=== PATIENT | female | born 1950 ===

== ENCOUNTER 2017-04-28 04:31 | Inpatient (IN) | payer BC, MEDICARE ==
[2017-04-28 04:31] VITALS: BMI 42.7
--- NOTE | 2017-04-28 05:20 | C.PDOC ---
Time Seen by Provider: 04/28/17 05:00 Chief Complaint (Nursing): Shortness Of Breath Past Medical History Vital Signs: Last Vital Signs Temp 98 F 04/28/17 04:54 Pulse 71 04/28/17 04:54 Resp 20 04/28/17 04:54 BP 125/80 04/28/17 04:54 Pulse Ox 96 04/28/17 04:54 - Medical History PMH: Asthma, Diverticulitis, Hypercholesterolemia Surgical History: Appendectomy - [facility] Procedures OTHER OPEN INCISIONAL HERNIA REPAIR WITH GRAFT OR PROSTHESIS (03/09/13) VACCINATION NEC (03/09/13) - Social History Hx Alcohol Use: No Hx Substance Use: No - Immunization History Hx Tetanus Toxoid Vaccination: No Hx Influenza Vaccination: No Hx Pneumococcal Vaccination: No ED Course And Treatment O2 Sat by Pulse Oximetry: 96 Disposition - Disposition
[2017-04-28] MEDS: Albuterol-Ipratrop 3 mg / 0.5 (3 ml) UD IH SCH ×2 (05:30→05:43)
[2017-04-28] MEDS ORDERED: Albuterol-Ipratrop 3 mg / 0.5 (3 ml) UD ONE ×2 (05:40→05:41)
--- NOTE | 2017-04-28 06:26 | C.PDOC ---
History Of Present Illness Patient is a 66 y/o female, with a Hx of asthma, who presents to the Ed with a complaint of cough, SOB, and increased wheezing since last night. Patient was prescribed several meds including Biaxin and singulair, flonase, phenergan and admits to using nebulizer at home with no relief. Notes being unable to sleep due to symptoms. Denies fever or CP. No other physical complaints at this time. Time Seen by Provider: 04/28/17 05:00 Chief Complaint (Nursing): Shortness Of Breath History Per: Patient History/Exam Limitations: no limitations Onset/Duration Of Symptoms: Days (a few days) Current Respiratory Medications: Other (biaxin and flonase) Associated Symptoms: denies: Fever, Chest Pain Recent travel outside of the [place]: No Past Medical History Reviewed: Historical Data, Nursing Documentation, Vital Signs Vital Signs: Last Vital Signs Temp 98 F 04/28/17 04:54 Pulse 71 04/28/17 04:54 Resp 20 04/28/17 05:32 BP 125/80 04/28/17 04:54 Pulse Ox 95 04/28/17 06:50 - Medical History PMH: Asthma, Diverticulitis, Hypercholesterolemia Surgical History: Appendectomy - [facility] Procedures OTHER OPEN INCISIONAL HERNIA REPAIR WITH GRAFT OR PROSTHESIS (03/09/13) VACCINATION NEC (03/09/13) Family History: States: No Known Family Hx - Social History Hx Alcohol Use: No Hx Substance Use: No - Immunization History Hx Tetanus Toxoid Vaccination: No Hx Influenza Vaccination: No Hx Pneumococcal Vaccination: No Review Of Systems Constitutional: Negative for: Fever Cardiovascular: Negative for: Chest Pain Respiratory: Positive for: Cough, Shortness of Breath, Wheezing Physical Exam - Physical Exam Appears: Well, Non-toxic, No Acute Distress Eye(s): bilateral: Normal Inspection Oral Mucosa: Moist Throat: Normal Cardiovascular: Rhythm Regular Respiratory: Decreased Breath Sounds, No Rales, No Rhonchi, Wheezing (expiratory , diffuse) Neurological/Psych: Oriented x3 ED Course And Treatment O2 Sat by Pulse Oximetry: 95 Pulse Ox Interpretation: Normal (low normal) - Radiology CXR: Interpreted by [place] CXR Interpretation: Yes: No Acute Disease. No: Infiltrates Progress Note: CXR and nebulizer treatment ordered. Duoneb x2 and prednisone PO administered. Pt still wheezing diffusely, in mild respiratory distress, VSS. Pt requesting medications for her cough. 3rd duoneb ordered, labs oedered incl Pro BNP. WILL REASSESS Reassessment Condition: Unchanged Disposition Counseled Patient/Family Regarding: Diagnosis, Need For Followup - Disposition Disposition Time: 06:45 Condition: STABLE Forms: [facility] ([place]) - Clinical Impression Clinical Impression: Dyspnea, COPD exacerbation - Scribe Statement The provider has reviewed the documentation as recorded by the Scribe Cathy Mclaughlin All medical record entries made by the Scribe were at my direction and personally dictated by me. I have reviewed the chart and agree that the record accurately reflects my personal performance of the history, physical exam, medical decision making, and the department course for this patient. I have also personally directed, reviewed, and agree with the discharge instructions and disposition. Physician Patient Turnover Patient Signed Over To: Esther Vargas Handoff Comments: Pending labs and reeval for disposition
[2017-04-28] MEDS ORDERED: Promethazine/Cod 6.25mg-10mg/5ml Syr UD PO STA (06:35)
[2017-04-28] MEDS ORDERED: Albuterol-Ipratrop 3 mg / 0.5 (3 ml) UD INH STA (06:46)
[2017-04-28] MEDS ORDERED: Promethazine/Cod 6.25mg-10mg/5ml Syr UD ONE (07:00)
[2017-04-28 07:27] LABS: CALCIUM 9.1 mg/dl (8.6-10.4); GFR AFRICAN-AMERICAN > 60; GFR NON-AFRICAN AMERICAN > 60
[2017-04-28 07:35] LABS: ALB/GLOB RATIO 1.1 (1.0-2.1); ALBUMIN 4.2 g/dL (3.5-5.0); ALT/SGPT 74 U/L (9-52); AST/SGOT 120 U/L (14-36); B-TYPE NATRIURETIC PEPTIDE 28.2 pg/mL (0-900); BLOOD UREA NITROGEN 20 mg/dL (7-17)
[2017-04-28 07:54] LABS: BASO # 0.1 K/uL (0.0-0.2); EOS # 0.3 K/uL (0.0-0.7); EOS % 3.2 % (0.0-4.0); LYMPH # 1.8 K/uL (1.0-4.3); LYMPH % 22.5 % (20.0-40.0); MEAN CELL VOLUME 90.5 fL (81.0-99.0); MEAN CORPUSCULAR HEMOGLOBIN 30.9 pg (27.0-31.0); MEAN CORPUSCULAR HGB CONC 34.2 g/dL (33.0-37.0); MEAN PLATELET VOLUME 8.4 fL (7.2-11.7); MONO # 0.6 K/uL (0.0-0.8); MONO % 7.4 % (0.0-10.0); NEUT # 5.3 K/uL (1.8-7.0); NEUT % 65.9 % (50.0-75.0); RBC 4.21 Mil/uL (3.80-5.20); RED CELL DISTRIBUTION WIDTH 12.4 % (11.5-14.5); WHITE BLOOD COUNT 8.1 K/uL (4.8-10.8)
[2017-04-28 08:28] LABS: ALB/GLOB RATIO 1.1 (1.0-2.1); ALBUMIN 4.1 g/dL (3.5-5.0); ALT/SGPT 78 U/L (9-52); AST/SGOT 99 U/L (14-36); BLOOD UREA NITROGEN 19 mg/dL (7-17); GFR AFRICAN-AMERICAN > 60; GFR NON-AFRICAN AMERICAN > 60
[2017-04-28 08:55] VITALS: RESP 20
--- NOTE | 2017-04-28 10:16 | RAD ---
Chest x-ray two views History: Cough congestion. Comparison: 03/11/2013 Findings: No focal infiltrate or effusion. Nonspecific diffuse increased interstitial lung markings. Clinical correlation. Small nodular density at left lung base likely represents vessel on end. Heart size within normal limits. Degenerative changes in the spine. Impression : No focal infiltrate or effusion. Nonspecific diffuse increased interstitial lung markings. Clinical correlation. Small nodular density at left lung base likely represents vessel on end.
--- NOTE | 2017-04-28 10:45 | CP.PCM.HP ---
Past Patient History - Past Social History Smoking Status: Never Smoked - CARDIAC Hx Hypercholesterolemia: Yes - PULMONARY Hx Asthma: Yes - GASTROINTESTINAL Hx Diverticulitis: Yes - PSYCHIATRIC Hx Substance Use: No - SURGICAL HISTORY Hx Appendectomy: Yes - ANESTHESIA Hx Anesthesia: Yes Hx Anesthesia Reactions: No Meds Allergies/Adverse Reactions: Allergies Allergy/AdvReac Type Severity Reaction Status Date / Time PCN Allergy Uncoded 04/28/17 04:59 SEAFOOD Allergy Uncoded 04/28/17 04:59 Physical Exam - Constitutional Appears: Well - Head Exam Head Exam: ATRAUMATIC, NORMAL INSPECTION, NORMOCEPHALIC - Eye Exam Eye Exam: EOMI, Normal appearance, PERRL Pupil Exam: NORMAL ACCOMODATION, PERRL - ENT Exam ENT Exam: Mucous Membranes Moist, Normal Exam - Neck Exam Neck exam: Positive for: Normal Inspection - Respiratory Exam Respiratory Exam: Decreased Breath Sounds - Cardiovascular Exam Cardiovascular Exam: REGULAR RHYTHM, +S1, +S2 - GI/Abdominal Exam GI & Abdominal Exam: Diminished Bowel Sounds, Soft - Rectal Exam Rectal Exam: Deferred Results - Vital Signs Recent Vital Signs: Last Vital Signs Temp 98.2 F 04/28/17 08:55 Pulse 114 H 04/28/17 08:55 Resp 20 04/28/17 08:55 BP 120/62 04/28/17 09:35 Pulse Ox 95 04/28/17 08:55 - Labs Result Diagrams: 04/28/17 07:48 04/28/17 07:48 Labs: Laboratory Results - last 24 hr 04/28/17 04/28/17 04/28/17 07:08 07:48 07:48 WBC 8.1 RBC 4.21 Hgb 13.0 Hct 38.0 MCV 90.5 MCH 30.9 MCHC 34.2 RDW 12.4 Plt Count 254 D MPV 8.4 Neut % (Auto) 65.9 Lymph % (Auto) 22.5 [place] % (Auto) 7.4 Eos % (Auto) 3.2 Baso % (Auto) 1.0 Neut # 5.3 Lymph # 1.8 [place] # 0.6 Eos # 0.3 Baso # 0.1 Sodium 132 133 Potassium 5.6 H 4.2 Chloride 99 98 Carbon Dioxide 26 26 Anion Gap 13 14 BUN 20 H 19 H Creatinine 0.6 L 0.6 L Est GFR ( Amer) > 60 > 60 Est GFR (Non-Af Amer) > 60 > 60 Random Glucose 199 H 248 H Calcium 9.1 9.0 Total Bilirubin 1.0 0.5 AST 120 H 99 H ALT 74 H 78 H Alkaline Phosphatase 92 108 Troponin I < 0.0120 NT-Pro-B Natriuret Pep 28.2 Total Protein 8.3 7.8 Albumin 4.2 4.1 Globulin 4.0 H 3.7 Albumin/Globulin Ratio 1.1 1.1
[2017-04-28 11:28] LABS: INR 1.1; PROTHROMBIN TIME 13.1 SECONDS (9.7-12.2)
[2017-04-28] MEDS: Albuterol-Ipratrop 3 mg / 0.5 (3 ml) UD INH SCH ×2 (13:23→19:24)
[2017-04-28] MEDS: MethylPREDNISolone 40 mg Vial IVP SCH ×2 (13:46→21:55)
--- NOTE | 2017-04-28 17:02 | CP.PCM.CON ---
History of Present Illness - History of Present Illness History of Present Illness: The patient is a 66 year old female with past medical history of asthma, DM, and unspecified arrhythmia treated with diltiazem who was treated in the ER for an asthma exacerbation. She states that 1 week ago she developed symptoms of an upper respiratory infection: sore throat, weakness, headache, back pain, and dry cough. On Thursday, the cough became severe and persistent leading to costochondritis. She began producing sputum that she described as changing in color from yellow to white to green to brown. On Thursday, she states that she visited her PCP who prescribed antibiotics and cough syrup for her in addition to recommending an increase in the frequency with which she takes her home inhaler. That night the patient developed severe wheezing, was producing copious sputum, and was complaining of orthopnea. She came to the emergency department due to her respiratory distress and difficulty sleeping. She states that she has not been traveling recently but does admit to many sick contacts with the "flu". Review of systems: General: denies fever, chills, admits to weakness Cardiovascular: denies chest pain, peripheral edema, admits to palpitations Pulmonary: denies shortness of breath, dyspnea, sputum production, hemoptysis, and wheezing, admits to cough Social history: Smoking - The patient began smoking at the age of 18 and stopped at the age of 50. She smoked 1 pack every 3 days on average. Occupation - The patient is currently retired. She used to work as a department secretary. Medical history: * Diabetes mellitus * Hyperlipidemia * Hypertriglyceridemia * Osteoarthritis * Nephrolithiasis * Migraines * Asthma * Unspecified arrhythmia (patient is unsure) Allergies: penicillin, calamari Family history: mother had diabetes but no family history of lung disease Medications: * Advair diskus 250/50 2 inh po daily * Proair hfa 2 2 inh q6 prn * Lipitor 10 mg po daily * Janumet 50-500 mg tablet 500 mg po daily * Montelukast sodium 500 mg po daily * Biaxin filmtab 500 mg po bid * Fenofibrate 145 mg po daily * Diltiazem ER 120 mg po daily Vital signs: Temperature: 98.2 F Pulse: 114 bpm Respiratory rate: 20 Blood pressure: 120/62 mm Hg Pulse oximetry: 95% on 2L O2 nasal canula Physical examination: Cardiovascular: tachycardic, +s1, +s2, grade 3 aortic stenosis murmur Pulmonary: mild diffuse wheezing, decreased lung sounds at bases, normal breathing pattern Labs: Imaging: CXR: nonspecific diffuse increased interstitial lung markings Assessment & Plan: Asthma exacerbation * CXR: nonspecific diffuse increased interstitial lung markings * Continue therapy with oxygen, Duonebs, Solumedrol, Prednisone * Monitor oxygen saturation * F/u peak flows Past Patient History - Past Medical History & Family History Past Medical History?: Yes - Past Social History Smoking Status: Never Smoked - CARDIAC Hx Hypercholesterolemia: Yes - PULMONARY Hx Asthma: Yes - MUSCULOSKELETAL/RHEUMATOLOGICAL Hx Falls: Yes (trips when walking) - GASTROINTESTINAL Hx Diverticulitis: Yes - PSYCHIATRIC Hx Substance Use: No - SURGICAL HISTORY Hx Appendectomy: Yes Other/Comment: left ovary and left fallopian tube removed years ago secondary to diverticilitis. right inguinal hernia repair with mesh years ago. - ANESTHESIA Hx Anesthesia: Yes Hx Anesthesia Reactions: No Meds Allergies/Adverse Reactions: Allergies Allergy/AdvReac Type Severity Reaction Status Date / Time PCN Allergy Uncoded 04/28/17 04:59 SEAFOOD Allergy Uncoded 04/28/17 04:59 - Medications Medications: Current Medications Acetaminophen (Tylenol 325mg Tab) 650 mg PO Q6 PRN PRN Reason: Pain, moderate (4-7) Albuterol/Ipratropium (Duoneb 3 Mg/0.5 Mg (3 Ml) Ud) 3 ml INH RQ6 [facility] Last Admin: 04/28/17 13:23 Dose: 3 ml Diltiazem HCl (Cardizem Cd) 120 mg PO DAILY [facility] Fenofibrate (Tricor) 145 mg PO DAILY [facility] Guaifenesin (Robitussin) 200 mg PO Q4H PRN PRN Reason: Cough and congestion Heparin Sodium (Porcine) (Heparin) 5,000 units SC Q12 [facility] Azithromycin 500 mg/ Sodium (Chloride) 250 mls @ 250 mls/hr IVPB Q24H [facility] Ceftriaxone Sodium 1 gm/ (Sodium Chloride) 100 mls @ 100 mls/hr IVPB QPM [facility] Insulin Aspart (Novolog) 0 unit SC ACHS [facility] PRN Reason: Protocol Metformin HCl (Glucophage) 500 mg PO DAILY [facility] Methylprednisolone (Solu-Medrol) 40 mg IVP Q8 [facility] Last Admin: 04/28/17 13:46 Dose: 40 mg Montelukast Sodium (Singulair) 10 mg PO HS [facility] Pantoprazole Sodium (Protonix Ec Tab) 40 mg PO DAILY [facility] Rosuvastatin Calcium (Crestor) 5 mg PO HS [facility] Fluticasone/Salmeterol (Advair Diskus 250/50) 1 puff INH RQ12 [facility] Sitagliptin Phosphate (Januvia) 50 mg PO DAILY [facility] Sitagliptin Phosphate (Januvia) 50 mg PO DAILY [facility] Results - Vital Signs Recent Vital Signs: Last Vital Signs Temp 97.8 F 04/28/17 16:00 Pulse 64 04/28/17 16:00 Resp 20 04/28/17 16:00 BP 100/59 L 04/28/17 16:00 Pulse Ox 96 04/28/17 16:00 - Labs Result Diagrams: 04/28/17 07:48 04/28/17 07:48 Labs: Laboratory Results - last 24 hr 04/28/17 04/28/17 04/28/17 07:08 07:48 07:48 WBC 8.1 RBC 4.21 Hgb 13.0 Hct 38.0 MCV 90.5 MCH 30.9 MCHC 34.2 RDW 12.4 Plt Count 254 D MPV 8.4 Neut % (Auto) 65.9 Lymph % (Auto) 22.5 [place] % (Auto) 7.4 Eos % (Auto) 3.2 Baso % (Auto) 1.0 Neut # 5.3 Lymph # 1.8 [place] # 0.6 Eos # 0.3 Baso # 0.1 PT INR APTT Sodium 132 133 Potassium 5.6 H 4.2 Chloride 99 98 Carbon Dioxide 26 26 Anion Gap 13 14 BUN 20 H 19 H Creatinine 0.6 L 0.6 L Est GFR ( Amer) > 60 > 60 Est GFR (Non-Af Amer) > 60 > 60 POC Glucose (mg/dL) Random Glucose 199 H 248 H Calcium 9.1 9.0 Total Bilirubin 1.0 0.5 AST 120 H 99 H ALT 74 H 78 H Alkaline Phosphatase 92 108 Troponin I < 0.0120 NT-Pro-B Natriuret Pep 28.2 Total Protein 8.3 7.8 Albumin 4.2 4.1 Globulin 4.0 H 3.7 Albumin/Globulin Ratio 1.1 1.1 04/28/17 04/28/17 11:11 16:38 WBC RBC Hgb Hct MCV MCH MCHC RDW Plt Count MPV Neut % (Auto) Lymph % (Auto) [place] % (Auto) Eos % (Auto) Baso % (Auto) Neut # Lymph # [place] # Eos # Baso # PT 13.1 H INR 1.1 APTT 28 Sodium Potassium Chloride Carbon Dioxide Anion Gap BUN Creatinine Est GFR ( Amer) Est GFR (Non-Af Amer) POC Glucose (mg/dL) > 500 H* Random Glucose Calcium Total Bilirubin AST ALT Alkaline Phosphatase Troponin I NT-Pro-B Natriuret Pep Total Protein Albumin Globulin Albumin/Globulin Ratio
[2017-04-28] MEDS: guaiFENesin 200 mg/10 ml Syrup UD PO PRN (17:11)
[2017-04-28] MEDS: (Novolog) Insulin Aspart, Recombinant 100 u/ml 10 ml vial SC SCH ×2 (17:13→21:50)
[2017-04-28] MEDS: Azithromycin 500 MG in Sodium Chloride 0.9% 250 ML IVPB SCH ×2 (17:18→18:00)
[2017-04-28] MEDS: Pantoprazole 40 mg EC Tab PO SCH (19:25)
[2017-04-28] MEDS ORDERED: Fluticasone-Salmeterol 250-50mcg Diskus INH SCH (20:00)
[2017-04-28] MEDS ORDERED: (Novolog) Insulin Aspart, Recombinant 100 u/ml 10 ml vial SC ONE ×3 (22:50→23:30)
[2017-04-29] MEDS: Albuterol-Ipratrop 3 mg / 0.5 (3 ml) UD INH SCH ×4 (01:39→19:29)
[2017-04-29] MEDS ORDERED: (Novolin R) Insulin Human Regular 100 units/ml vial SC ONE (03:07)
[2017-04-29] MEDS: guaiFENesin 200 mg/10 ml Syrup UD PO PRN (04:16)
[2017-04-29] MEDS: MethylPREDNISolone 40 mg Vial IVP SCH ×2 (06:22→13:16)
--- NOTE | 2017-04-29 08:05 | CP.PCM.PN ---
Subjective - Date & Time of Evaluation Date of Evaluation: 04/29/17 Time of Evaluation: 05:50 - Subjective Subjective: clinically same Objective - Vital Signs/Intake and Output Vital Signs (last 24 hours): Temp Pulse Resp BP Pulse Ox 97.9 F 101 H 20 135/76 96 04/29/17 00:00 04/29/17 00:00 04/29/17 00:00 04/29/17 00:00 04/29/17 00:00 Intake and Output: 04/29/17 04/29/17 06:59 18:59 Intake Total 1000 Output Total 3 Balance 997 - Medications Medications: Current Medications Acetaminophen (Tylenol 325mg Tab) 650 mg PO Q6 PRN PRN Reason: Pain, moderate (4-7) Last Admin: 04/28/17 17:15 Dose: 650 mg Albuterol/Ipratropium (Duoneb 3 Mg/0.5 Mg (3 Ml) Ud) 3 ml INH RQ6 [facility] Last Admin: 04/29/17 07:31 Dose: 3 ml Diltiazem HCl (Cardizem Cd) 120 mg PO DAILY [facility] Fenofibrate (Tricor) 145 mg PO DAILY [facility] Guaifenesin (Robitussin) 200 mg PO Q4H PRN PRN Reason: Cough and congestion Last Admin: 04/29/17 04:16 Dose: 200 mg Heparin Sodium (Porcine) (Heparin) 5,000 units SC Q12 [facility] Last Admin: 04/28/17 21:53 Dose: 5,000 units Azithromycin 500 mg/ Sodium (Chloride) 250 mls @ 250 mls/hr IVPB Q24H [facility] Last Admin: 04/28/17 18:00 Dose: 250 mls/hr Ceftriaxone Sodium 1 gm/ (Sodium Chloride) 100 mls @ 100 mls/hr IVPB QPM [facility] Last Admin: 04/28/17 18:59 Dose: 100 mls/hr Insulin Aspart (Novolog) 0 unit SC ACHS [facility] PRN Reason: Protocol Metformin HCl (Glucophage) 500 mg PO DAILY [facility] Methylprednisolone (Solu-Medrol) 40 mg IVP Q8 [facility] Last Admin: 04/29/17 06:22 Dose: 40 mg Montelukast Sodium (Singulair) 10 mg PO HS [facility] Last Admin: 04/28/17 21:55 Dose: 10 mg Pantoprazole Sodium (Protonix Ec Tab) 40 mg PO DAILY [facility] Last Admin: 04/28/17 19:25 Dose: 40 mg Rosuvastatin Calcium (Crestor) 5 mg PO HS [facility] Last Admin: 04/28/17 22:00 Dose: 5 mg Fluticasone/Salmeterol (Advair Diskus 250/50) 1 puff INH RQ12 [facility] Sitagliptin Phosphate (Januvia) 50 mg PO DAILY [facility] Sitagliptin Phosphate (Januvia) 50 mg PO DAILY [facility] Last Admin: 04/28/17 17:12 Dose: 50 mg - Labs Labs: 04/28/17 07:48 04/28/17 07:48 PT 13.1 SECONDS (9.7-12.2) H 04/28/17 11:11 INR 1.1 04/28/17 11:11 APTT 28 SECONDS (21-34) 04/28/17 11:11
[2017-04-29] MEDS: (Novolog) Insulin Aspart, Recombinant 100 u/ml 10 ml vial SC SCH ×4 (08:23→21:40)
[2017-04-29] MEDS: Pantoprazole 40 mg EC Tab PO SCH (10:08)
[2017-04-29] MEDS: diltiaZEM 120 mg/24 Hours CD Cap PO SCH (10:09)
--- NOTE | 2017-04-29 15:26 | CP.PCM.PN ---
Subjective - Date & Time of Evaluation Date of Evaluation: 04/29/17 Time of Evaluation: 10:30 - Subjective Subjective: The patient was seen and examined this morning. She states that she slept for 5 hours without coughing. Today she is complaining of mild shortness of breath. She states that her sore/hoarse throat is improving. She is complaining of nasal congestion. Her chest pain has resolved. Her cough has improved. She admits to weakness, palpitations, cough, and mild wheezing. She denies fever, chills, chest pain, sputum production, and hempotysis. Vital signs: Temperature: 98.1 F Pulse: 104 bpm Respiratory rate: 20 brpm Blood pressure: 137/77 mm Hg Pulse oximetry: 95% on RA Physical examination: Cardiovascular: tachycardic, +s1, +s2, grade 3 aortic stenosis murmur Pulmonary: mild diffuse wheezing in WENDY & LLL, decreased lung sounds at bases, normal breathing pattern Labs: 04/28/2017 Imaging: CXR: nonspecific diffuse increased interstitial lung markings Assessment & Plan: Asthma exacerbation * CXR: nonspecific diffuse increased interstitial lung markings * Continue therapy with Duonebs, singulair, start prednisone * Continue IV azithromycin and ceftriaxone * Monitor oxygen saturation Objective - Vital Signs/Intake and Output Vital Signs (last 24 hours): Temp Pulse Resp BP Pulse Ox 98.1 F 104 H 20 137/77 95 04/29/17 08:00 04/29/17 08:00 04/29/17 08:00 04/29/17 08:00 04/29/17 08:00 Intake and Output: 04/29/17 04/29/17 06:59 18:59 Intake Total 1000 480 Output Total 3 Balance 997 480 - Medications Medications: Current Medications Acetaminophen (Tylenol 325mg Tab) 650 mg PO Q6 PRN PRN Reason: Pain, moderate (4-7) Last Admin: 04/28/17 17:15 Dose: 650 mg Albuterol/Ipratropium (Duoneb 3 Mg/0.5 Mg (3 Ml) Ud) 3 ml INH RQ6 [facility] Last Admin: 04/29/17 13:32 Dose: 3 ml Diltiazem HCl (Cardizem Cd) 120 mg PO DAILY [facility] Last Admin: 04/29/17 10:09 Dose: 120 mg Fenofibrate (Tricor) 145 mg PO DAILY [facility] Last Admin: 04/29/17 10:09 Dose: 145 mg Guaifenesin (Robitussin) 200 mg PO Q4H PRN PRN Reason: Cough and congestion Last Admin: 04/29/17 04:16 Dose: 200 mg Heparin Sodium (Porcine) (Heparin) 5,000 units SC Q12 [facility] Last Admin: 04/29/17 10:09 Dose: 5,000 units Azithromycin 500 mg/ Sodium (Chloride) 250 mls @ 250 mls/hr IVPB Q24H [facility] Last Admin: 04/28/17 18:00 Dose: 250 mls/hr Ceftriaxone Sodium 1 gm/ (Sodium Chloride) 100 mls @ 100 mls/hr IVPB QPM [facility] Last Admin: 04/28/17 18:59 Dose: 100 mls/hr Insulin Aspart (Novolog) 0 unit SC ACHS [facility] PRN Reason: Protocol Last Admin: 04/29/17 12:30 Dose: 10 unit Metformin HCl (Glucophage) 500 mg PO DAILY [facility] Last Admin: 04/29/17 10:08 Dose: 500 mg Methylprednisolone (Solu-Medrol) 40 mg IVP Q8 [facility] Last Admin: 04/29/17 13:16 Dose: 40 mg Montelukast Sodium (Singulair) 10 mg PO HS [facility] Last Admin: 04/28/17 21:55 Dose: 10 mg Pantoprazole Sodium (Protonix Ec Tab) 40 mg PO DAILY [facility] Last Admin: 04/29/17 10:08 Dose: 40 mg Pneumococcal Polyvalent Vaccine (Pneumovax 23 Vaccine) 0.5 ml IM .ONCE ONE Stop: 05/01/17 10:01 Rosuvastatin Calcium (Crestor) 5 mg PO HS [facility] Last Admin: 04/28/17 22:00 Dose: 5 mg Fluticasone/Salmeterol (Advair Diskus 250/50) 1 puff INH RQ12 [facility] Sitagliptin Phosphate (Januvia) 50 mg PO DAILY [facility] Last Admin: 04/29/17 10:08 Dose: 50 mg - Labs Labs: 04/28/17 07:48 04/28/17 07:48 PT 13.1 SECONDS (9.7-12.2) H 04/28/17 11:11 INR 1.1 04/28/17 11:11 APTT 28 SECONDS (21-34) 04/28/17 11:11
[2017-04-29] MEDS: Azithromycin 500 MG in Sodium Chloride 0.9% 250 ML IVPB SCH (16:50)
[2017-04-30] MEDS: Albuterol-Ipratrop 3 mg / 0.5 (3 ml) UD INH SCH ×4 (01:33→19:33)
[2017-04-30] MEDS: (Novolog) Insulin Aspart, Recombinant 100 u/ml 10 ml vial SC SCH ×5 (08:11→21:31)
[2017-04-30] MEDS: Pantoprazole 40 mg EC Tab PO SCH (10:09)
[2017-04-30] MEDS: diltiaZEM 120 mg/24 Hours CD Cap PO SCH (10:10)
[2017-04-30 14:13] LABS: BASO % 0.4 % (0.0-2.0); EOS % 0.1 % (0.0-4.0); HEMOGLOBIN 12.8 g/dL (11.0-16.0); LYMPH # 1.5 K/uL (1.0-4.3); LYMPH % 12.1 % (20.0-40.0); MEAN CELL VOLUME 90.7 fL (81.0-99.0); MEAN CORPUSCULAR HEMOGLOBIN 30.1 pg (27.0-31.0); MEAN CORPUSCULAR HGB CONC 33.2 g/dL (33.0-37.0); MONO # 0.7 K/uL (0.0-0.8); MONO % 5.9 % (0.0-10.0); NEUT # 10.1 K/uL (1.8-7.0); NEUT % 81.5 % (50.0-75.0); RBC 4.24 Mil/uL (3.80-5.20); RED CELL DISTRIBUTION WIDTH 12.4 % (11.5-14.5); WHITE BLOOD COUNT 12.4 K/uL (4.8-10.8)
[2017-04-30 14:36] LABS: ALB/GLOB RATIO 1.1 (1.0-2.1); ALBUMIN 4.1 g/dL (3.5-5.0); ALT/SGPT 50 U/L (9-52); AST/SGOT 40 U/L (14-36); BLOOD UREA NITROGEN 24 mg/dL (7-17); CALCIUM 9.3 mg/dl (8.6-10.4); GFR AFRICAN-AMERICAN > 60; GFR NON-AFRICAN AMERICAN > 60
[2017-04-30] MEDS: Azithromycin 500 MG in Sodium Chloride 0.9% 250 ML IVPB SCH (16:31)
[2017-04-30] MEDS: guaiFENesin 200 mg/10 ml Syrup UD PO PRN (16:36)
--- NOTE | 2017-04-30 18:36 | CP.PCM.PN ---
Subjective - Date & Time of Evaluation Date of Evaluation: 04/30/17 Time of Evaluation: 18:00 - Subjective Subjective: Patient seen and examined Still complaining of cough Shortness of breath much improved Afebrile No chest pain Objective - Vital Signs/Intake and Output Vital Signs (last 24 hours): Temp Pulse Resp BP Pulse Ox 97.8 F 82 20 138/86 96 04/30/17 16:00 04/30/17 16:00 04/30/17 16:00 04/30/17 16:00 04/30/17 16:00 Intake and Output: 04/30/17 04/30/17 06:59 18:59 Intake Total 950 600 Balance 950 600 - Medications Medications: Current Medications Acetaminophen (Tylenol 325mg Tab) 650 mg PO Q6 PRN PRN Reason: Pain, moderate (4-7) Last Admin: 04/28/17 17:15 Dose: 650 mg Albuterol/Ipratropium (Duoneb 3 Mg/0.5 Mg (3 Ml) Ud) 3 ml INH RQ6 [facility] Last Admin: 04/30/17 13:32 Dose: 3 ml Diltiazem HCl (Cardizem Cd) 120 mg PO DAILY [facility] Last Admin: 04/30/17 10:10 Dose: 120 mg Fenofibrate (Tricor) 145 mg PO DAILY [facility] Last Admin: 04/30/17 10:10 Dose: 145 mg Guaifenesin (Robitussin) 200 mg PO Q4H PRN PRN Reason: Cough and congestion Last Admin: 04/30/17 16:36 Dose: 200 mg Heparin Sodium (Porcine) (Heparin) 5,000 units SC Q12 [facility] Last Admin: 04/30/17 10:10 Dose: 5,000 units Azithromycin 500 mg/ Sodium (Chloride) 250 mls @ 250 mls/hr IVPB Q24H [facility] Last Admin: 04/30/17 16:31 Dose: 250 mls/hr Ceftriaxone Sodium 1 gm/ (Sodium Chloride) 100 mls @ 100 mls/hr IVPB QPM [facility] Last Admin: 04/30/17 17:35 Dose: 100 mls/hr Insulin Aspart (Novolog) 0 unit SC ACHS [facility] PRN Reason: Protocol Last Admin: 04/30/17 17:38 Dose: 8 unit Metformin HCl (Glucophage) 500 mg PO DAILY [facility] Last Admin: 04/30/17 10:09 Dose: 500 mg Montelukast Sodium (Singulair) 10 mg PO HS [facility] Last Admin: 04/29/17 21:42 Dose: 10 mg Pantoprazole Sodium (Protonix Ec Tab) 40 mg PO DAILY [facility] Last Admin: 04/30/17 10:09 Dose: 40 mg Pneumococcal Polyvalent Vaccine (Pneumovax 23 Vaccine) 0.5 ml IM .ONCE ONE Stop: 05/01/17 10:01 Prednisone (Prednisone Tab) 20 mg PO DAILY [facility] Last Admin: 04/30/17 10:09 Dose: 20 mg Rosuvastatin Calcium (Crestor) 5 mg PO HS [facility] Last Admin: 04/29/17 21:42 Dose: 5 mg Fluticasone/Salmeterol (Advair Diskus 250/50) 1 puff INH RQ12 [facility] Sitagliptin Phosphate (Januvia) 50 mg PO DAILY [facility] Last Admin: 04/30/17 10:10 Dose: 50 mg - Labs Labs: 04/30/17 14:07 04/30/17 14:07 PT 13.1 SECONDS (9.7-12.2) H 04/28/17 11:11 INR 1.1 04/28/17 11:11 APTT 28 SECONDS (21-34) 04/28/17 11:11 - Head Exam Head Exam: ATRAUMATIC, NORMOCEPHALIC - Eye Exam Eye Exam: Normal appearance - ENT Exam ENT Exam: Mucous Membranes Moist - Neck Exam Neck Exam: Normal Inspection - Respiratory Exam Respiratory Exam: Rhonchi, Wheezes - Cardiovascular Exam Cardiovascular Exam: REGULAR RHYTHM Assessment and Plan (1) COPD exacerbation Assessment & Plan: continue steroids, nebulizer treatment, antibiotics Will need pulmonary function test Will need sleep study Status: Acute (2) Dyspnea Status: Acute
--- NOTE | 2017-04-30 20:40 | CP.PCM.PN ---
Subjective - Date & Time of Evaluation Date of Evaluation: 04/30/17 Time of Evaluation: 20:40 Objective - Vital Signs/Intake and Output Vital Signs (last 24 hours): Temp Pulse Resp BP Pulse Ox 97.8 F 82 20 138/86 96 04/30/17 16:00 04/30/17 16:00 04/30/17 16:00 04/30/17 16:00 04/30/17 16:00 Intake and Output: 04/30/17 05/01/17 18:59 06:59 Intake Total 600 Balance 600 - Medications Medications: Current Medications Acetaminophen (Tylenol 325mg Tab) 650 mg PO Q6 PRN PRN Reason: Pain, moderate (4-7) Last Admin: 04/28/17 17:15 Dose: 650 mg Albuterol/Ipratropium (Duoneb 3 Mg/0.5 Mg (3 Ml) Ud) 3 ml INH RQ6 [facility] Last Admin: 04/30/17 19:33 Dose: 3 ml Diltiazem HCl (Cardizem Cd) 120 mg PO DAILY [facility] Last Admin: 04/30/17 10:10 Dose: 120 mg Fenofibrate (Tricor) 145 mg PO DAILY [facility] Last Admin: 04/30/17 10:10 Dose: 145 mg Guaifenesin (Robitussin) 200 mg PO Q4H PRN PRN Reason: Cough and congestion Last Admin: 04/30/17 16:36 Dose: 200 mg Heparin Sodium (Porcine) (Heparin) 5,000 units SC Q12 [facility] Last Admin: 04/30/17 10:10 Dose: 5,000 units Azithromycin 500 mg/ Sodium (Chloride) 250 mls @ 250 mls/hr IVPB Q24H [facility] Last Admin: 04/30/17 16:31 Dose: 250 mls/hr Ceftriaxone Sodium 1 gm/ (Sodium Chloride) 100 mls @ 100 mls/hr IVPB QPM [facility] Last Admin: 04/30/17 17:35 Dose: 100 mls/hr Insulin Aspart (Novolog) 0 unit SC ACHS [facility] PRN Reason: Protocol Last Admin: 04/30/17 17:38 Dose: 8 unit Metformin HCl (Glucophage) 500 mg PO DAILY [facility] Last Admin: 04/30/17 10:09 Dose: 500 mg Montelukast Sodium (Singulair) 10 mg PO HS [facility] Last Admin: 04/29/17 21:42 Dose: 10 mg Pantoprazole Sodium (Protonix Ec Tab) 40 mg PO DAILY [facility] Last Admin: 04/30/17 10:09 Dose: 40 mg Pneumococcal Polyvalent Vaccine (Pneumovax 23 Vaccine) 0.5 ml IM .ONCE ONE Stop: 05/01/17 10:01 Prednisone (Prednisone Tab) 20 mg PO DAILY [facility] Last Admin: 04/30/17 10:09 Dose: 20 mg Rosuvastatin Calcium (Crestor) 5 mg PO HS [facility] Last Admin: 04/29/17 21:42 Dose: 5 mg Fluticasone/Salmeterol (Advair Diskus 250/50) 1 puff INH RQ12 [facility] Sitagliptin Phosphate (Januvia) 50 mg PO DAILY [facility] Last Admin: 04/30/17 10:10 Dose: 50 mg - Labs Labs: 04/30/17 14:07 04/30/17 14:07 PT 13.1 SECONDS (9.7-12.2) H 04/28/17 11:11 INR 1.1 04/28/17 11:11 APTT 28 SECONDS (21-34) 04/28/17 11:11
[2017-05-01] MEDS: Albuterol-Ipratrop 3 mg / 0.5 (3 ml) UD INH SCH ×4 (02:42→20:51)
[2017-05-01] MEDS: guaiFENesin 200 mg/10 ml Syrup UD PO PRN (02:51)
[2017-05-01] MEDS: (Novolog) Insulin Aspart, Recombinant 100 u/ml 10 ml vial SC SCH ×4 (08:30→21:52)
[2017-05-01] MEDS ORDERED: Pneumococcal 23-Valent Vaccine IM ONE (10:00)
[2017-05-01] MEDS ORDERED: Influenza Vaccine 60 mcg/0.5 mL SYR (4YR UP) IM ONE (10:00)
[2017-05-01] MEDS: Pantoprazole 40 mg EC Tab PO SCH (10:27)
[2017-05-01] MEDS: diltiaZEM 120 mg/24 Hours CD Cap PO SCH (11:00)
--- NOTE | 2017-05-01 12:59 | CP.PCM.PN ---
Objective - Vital Signs/Intake and Output Vital Signs (last 24 hours): Temp Pulse Resp BP Pulse Ox 98.3 F 75 20 141/85 95 05/01/17 07:54 05/01/17 07:54 05/01/17 07:54 05/01/17 07:54 05/01/17 07:54 Intake and Output: 05/01/17 05/01/17 06:59 18:59 Intake Total 1300 Balance 1300 - Medications Medications: Current Medications Acetaminophen (Tylenol 325mg Tab) 650 mg PO Q6 PRN PRN Reason: Pain, moderate (4-7) Last Admin: 04/28/17 17:15 Dose: 650 mg Albuterol/Ipratropium (Duoneb 3 Mg/0.5 Mg (3 Ml) Ud) 3 ml INH RQ6 [facility] Last Admin: 05/01/17 07:30 Dose: Not Given Diltiazem HCl (Cardizem Cd) 120 mg PO DAILY [facility] Last Admin: 05/01/17 11:00 Dose: 120 mg Fenofibrate (Tricor) 145 mg PO DAILY [facility] Last Admin: 05/01/17 11:00 Dose: 145 mg Guaifenesin (Robitussin) 200 mg PO Q4H PRN PRN Reason: Cough and congestion Last Admin: 05/01/17 02:51 Dose: 200 mg Heparin Sodium (Porcine) (Heparin) 5,000 units SC Q12 [facility] Last Admin: 05/01/17 10:27 Dose: 5,000 units Azithromycin 500 mg/ Sodium (Chloride) 250 mls @ 250 mls/hr IVPB Q24H [facility] Last Admin: 04/30/17 16:31 Dose: 250 mls/hr Ceftriaxone Sodium 1 gm/ (Sodium Chloride) 100 mls @ 100 mls/hr IVPB QPM [facility] Last Admin: 04/30/17 17:35 Dose: 100 mls/hr Insulin Aspart (Novolog) 0 unit SC ACHS [facility] PRN Reason: Protocol Last Admin: 05/01/17 12:34 Dose: 2 unit Metformin HCl (Glucophage) 500 mg PO DAILY [facility] Last Admin: 05/01/17 10:26 Dose: 500 mg Montelukast Sodium (Singulair) 10 mg PO HS [facility] Last Admin: 04/30/17 21:22 Dose: 10 mg Pantoprazole Sodium (Protonix Ec Tab) 40 mg PO DAILY [facility] Last Admin: 05/01/17 10:27 Dose: 40 mg Prednisone (Prednisone Tab) 20 mg PO DAILY [facility] Last Admin: 05/01/17 10:27 Dose: 20 mg Rosuvastatin Calcium (Crestor) 5 mg PO HS [facility] Last Admin: 04/30/17 21:22 Dose: 5 mg Fluticasone/Salmeterol (Advair Diskus 250/50) 1 puff INH RQ12 [facility] Sitagliptin Phosphate (Januvia) 50 mg PO DAILY [facility] Last Admin: 05/01/17 10:26 Dose: 50 mg - Labs Labs: 04/30/17 14:07 04/30/17 14:07 PT 13.1 SECONDS (9.7-12.2) H 04/28/17 11:11 INR 1.1 04/28/17 11:11 APTT 28 SECONDS (21-34) 04/28/17 11:11 Assessment and Plan (1) COPD exacerbation Status: Acute (2) Dyspnea Status: Acute
--- NOTE | 2017-05-01 16:04 | CP.PCM.PN ---
Subjective - Date & Time of Evaluation Date of Evaluation: 05/01/17 Time of Evaluation: 16:04 Objective - Vital Signs/Intake and Output Vital Signs (last 24 hours): Temp Pulse Resp BP Pulse Ox 98.3 F 75 20 141/85 95 05/01/17 07:54 05/01/17 07:54 05/01/17 07:54 05/01/17 07:54 05/01/17 07:54 Intake and Output: 05/01/17 05/01/17 06:59 18:59 Intake Total 1300 Balance 1300 - Medications Medications: Current Medications Acetaminophen (Tylenol 325mg Tab) 650 mg PO Q6 PRN PRN Reason: Pain, moderate (4-7) Last Admin: 04/28/17 17:15 Dose: 650 mg Albuterol/Ipratropium (Duoneb 3 Mg/0.5 Mg (3 Ml) Ud) 3 ml INH RQ6 [facility] Last Admin: 05/01/17 13:09 Dose: 3 ml Diltiazem HCl (Cardizem Cd) 120 mg PO DAILY [facility] Last Admin: 05/01/17 11:00 Dose: 120 mg Fenofibrate (Tricor) 145 mg PO DAILY [facility] Last Admin: 05/01/17 11:00 Dose: 145 mg Guaifenesin (Robitussin) 200 mg PO Q4H PRN PRN Reason: Cough and congestion Last Admin: 05/01/17 02:51 Dose: 200 mg Heparin Sodium (Porcine) (Heparin) 5,000 units SC Q12 [facility] Last Admin: 05/01/17 10:27 Dose: 5,000 units Azithromycin 500 mg/ Sodium (Chloride) 250 mls @ 250 mls/hr IVPB Q24H [facility] Last Admin: 04/30/17 16:31 Dose: 250 mls/hr Ceftriaxone Sodium 1 gm/ (Sodium Chloride) 100 mls @ 100 mls/hr IVPB QPM [facility] Last Admin: 04/30/17 17:35 Dose: 100 mls/hr Insulin Aspart (Novolog) 0 unit SC ACHS [facility] PRN Reason: Protocol Last Admin: 05/01/17 12:34 Dose: 2 unit Metformin HCl (Glucophage) 500 mg PO DAILY [facility] Last Admin: 05/01/17 10:26 Dose: 500 mg Montelukast Sodium (Singulair) 10 mg PO HS [facility] Last Admin: 04/30/17 21:22 Dose: 10 mg Pantoprazole Sodium (Protonix Ec Tab) 40 mg PO DAILY [facility] Last Admin: 05/01/17 10:27 Dose: 40 mg Prednisone (Prednisone Tab) 20 mg PO DAILY [facility] Last Admin: 05/01/17 10:27 Dose: 20 mg Rosuvastatin Calcium (Crestor) 5 mg PO HS [facility] Last Admin: 04/30/17 21:22 Dose: 5 mg Fluticasone/Salmeterol (Advair Diskus 250/50) 1 puff INH RQ12 [facility] Sitagliptin Phosphate (Januvia) 50 mg PO DAILY [facility] Last Admin: 05/01/17 10:26 Dose: 50 mg - Labs Labs: 04/30/17 14:07 04/30/17 14:07 PT 13.1 SECONDS (9.7-12.2) H 04/28/17 11:11 INR 1.1 04/28/17 11:11 APTT 28 SECONDS (21-34) 04/28/17 11:11
[2017-05-01] MEDS: Azithromycin 500 MG in Sodium Chloride 0.9% 250 ML IVPB SCH (17:10)
[2017-05-02] MEDS: Albuterol-Ipratrop 3 mg / 0.5 (3 ml) UD INH SCH ×4 (01:52→19:01)
[2017-05-02] MEDS: (Novolog) Insulin Aspart, Recombinant 100 u/ml 10 ml vial SC SCH ×4 (08:12→21:57)
[2017-05-02] MEDS: Pantoprazole 40 mg EC Tab PO SCH (10:23)
[2017-05-02] MEDS: diltiaZEM 120 mg/24 Hours CD Cap PO SCH (10:24)
--- NOTE | 2017-05-02 17:19 | CP.PCM.PN ---
Subjective - Date & Time of Evaluation Date of Evaluation: 05/02/17 Time of Evaluation: 14:00 - Subjective Subjective: patient seen and examined Breathing and cough much improved Afebrile No chest pain On prednisone Nebulizer treatment Objective - Vital Signs/Intake and Output Vital Signs (last 24 hours): Temp Pulse Resp BP Pulse Ox 98.4 F 86 20 118/71 95 05/02/17 15:00 05/02/17 15:00 05/02/17 15:00 05/02/17 15:00 05/02/17 15:00 Intake and Output: 05/02/17 05/02/17 06:59 18:59 Intake Total 750 700 Balance 750 700 - Medications Medications: Current Medications Acetaminophen (Tylenol 325mg Tab) 650 mg PO Q6 PRN PRN Reason: Pain, moderate (4-7) Last Admin: 04/28/17 17:15 Dose: 650 mg Albuterol/Ipratropium (Duoneb 3 Mg/0.5 Mg (3 Ml) Ud) 3 ml INH RQ6 [facility] Last Admin: 05/02/17 13:45 Dose: 3 ml Diltiazem HCl (Cardizem Cd) 120 mg PO DAILY [facility] Last Admin: 05/02/17 10:24 Dose: 120 mg Fenofibrate (Tricor) 145 mg PO DAILY [facility] Last Admin: 05/02/17 10:24 Dose: 145 mg Guaifenesin (Robitussin) 200 mg PO Q4H PRN PRN Reason: Cough and congestion Last Admin: 05/01/17 02:51 Dose: 200 mg Azithromycin 500 mg/ Sodium (Chloride) 250 mls @ 250 mls/hr IVPB Q24H [facility] Last Admin: 05/01/17 17:10 Dose: 250 mls/hr Ceftriaxone Sodium 1 gm/ (Sodium Chloride) 100 mls @ 100 mls/hr IVPB QPM [facility] Last Admin: 05/01/17 17:35 Dose: 100 mls/hr Insulin Aspart (Novolog) 0 unit SC ACHS [facility] PRN Reason: Protocol Last Admin: 05/02/17 12:30 Dose: 4 unit Metformin HCl (Glucophage) 500 mg PO DAILY [facility] Last Admin: 05/02/17 10:23 Dose: 500 mg Montelukast Sodium (Singulair) 10 mg PO HS [facility] Last Admin: 05/01/17 21:53 Dose: 10 mg Pantoprazole Sodium (Protonix Ec Tab) 40 mg PO DAILY [facility] Last Admin: 05/02/17 10:23 Dose: 40 mg Prednisone (Prednisone Tab) 20 mg PO DAILY [facility] Last Admin: 05/02/17 10:23 Dose: 20 mg Rosuvastatin Calcium (Crestor) 5 mg PO HS [facility] Last Admin: 05/01/17 21:53 Dose: 5 mg Fluticasone/Salmeterol (Advair Diskus 250/50) 1 puff INH RQ12 [facility] Sitagliptin Phosphate (Januvia) 50 mg PO DAILY [facility] Last Admin: 05/02/17 10:23 Dose: 50 mg - Labs Labs: 04/30/17 14:07 04/30/17 14:07 PT 13.1 SECONDS (9.7-12.2) H 04/28/17 11:11 INR 1.1 04/28/17 11:11 APTT 28 SECONDS (21-34) 04/28/17 11:11 Assessment and Plan (1) COPD exacerbation Status: Acute (2) Dyspnea Status: Acute
--- NOTE | 2017-05-02 17:22 | CP.PCM.PN ---
Subjective - Date & Time of Evaluation Date of Evaluation: 05/02/17 Time of Evaluation: 17:22 Objective - Vital Signs/Intake and Output Vital Signs (last 24 hours): Temp Pulse Resp BP Pulse Ox 98.4 F 86 20 118/71 95 05/02/17 15:00 05/02/17 15:00 05/02/17 15:00 05/02/17 15:00 05/02/17 15:00 Intake and Output: 05/02/17 05/02/17 06:59 18:59 Intake Total 750 700 Balance 750 700 - Medications Medications: Current Medications Acetaminophen (Tylenol 325mg Tab) 650 mg PO Q6 PRN PRN Reason: Pain, moderate (4-7) Last Admin: 04/28/17 17:15 Dose: 650 mg Albuterol/Ipratropium (Duoneb 3 Mg/0.5 Mg (3 Ml) Ud) 3 ml INH RQ6 [facility] Last Admin: 05/02/17 13:45 Dose: 3 ml Diltiazem HCl (Cardizem Cd) 120 mg PO DAILY [facility] Last Admin: 05/02/17 10:24 Dose: 120 mg Fenofibrate (Tricor) 145 mg PO DAILY [facility] Last Admin: 05/02/17 10:24 Dose: 145 mg Guaifenesin (Robitussin) 200 mg PO Q4H PRN PRN Reason: Cough and congestion Last Admin: 05/01/17 02:51 Dose: 200 mg Azithromycin 500 mg/ Sodium (Chloride) 250 mls @ 250 mls/hr IVPB Q24H [facility] Last Admin: 05/01/17 17:10 Dose: 250 mls/hr Ceftriaxone Sodium 1 gm/ (Sodium Chloride) 100 mls @ 100 mls/hr IVPB QPM [facility] Last Admin: 05/01/17 17:35 Dose: 100 mls/hr Insulin Aspart (Novolog) 0 unit SC ACHS [facility] PRN Reason: Protocol Last Admin: 05/02/17 12:30 Dose: 4 unit Metformin HCl (Glucophage) 500 mg PO DAILY [facility] Last Admin: 05/02/17 10:23 Dose: 500 mg Montelukast Sodium (Singulair) 10 mg PO HS [facility] Last Admin: 05/01/17 21:53 Dose: 10 mg Pantoprazole Sodium (Protonix Ec Tab) 40 mg PO DAILY [facility] Last Admin: 05/02/17 10:23 Dose: 40 mg Prednisone (Prednisone Tab) 20 mg PO DAILY [facility] Last Admin: 05/02/17 10:23 Dose: 20 mg Rosuvastatin Calcium (Crestor) 5 mg PO HS [facility] Last Admin: 05/01/17 21:53 Dose: 5 mg Fluticasone/Salmeterol (Advair Diskus 250/50) 1 puff INH RQ12 [facility] Sitagliptin Phosphate (Januvia) 50 mg PO DAILY [facility] Last Admin: 05/02/17 10:23 Dose: 50 mg - Labs Labs: 04/30/17 14:07 04/30/17 14:07 PT 13.1 SECONDS (9.7-12.2) H 04/28/17 11:11 INR 1.1 04/28/17 11:11 APTT 28 SECONDS (21-34) 04/28/17 11:11
[2017-05-02] MEDS: Azithromycin 500 MG in Sodium Chloride 0.9% 250 ML IVPB SCH (17:31)
[2017-05-02] MEDS: guaiFENesin 200 mg/10 ml Syrup UD PO PRN (22:26)
[2017-05-03] MEDS: Albuterol-Ipratrop 3 mg / 0.5 (3 ml) UD INH SCH ×4 (01:20→19:18)
[2017-05-03] MEDS: (Novolog) Insulin Aspart, Recombinant 100 u/ml 10 ml vial SC SCH ×4 (08:29→21:45)
[2017-05-03] MEDS: Pantoprazole 40 mg EC Tab PO SCH (11:05)
[2017-05-03] MEDS: diltiaZEM 120 mg/24 Hours CD Cap PO SCH (11:06)
--- NOTE | 2017-05-03 13:05 | CP.PCM.PN ---
Subjective - Date & Time of Evaluation Date of Evaluation: 05/03/17 Time of Evaluation: 13:05 Objective - Vital Signs/Intake and Output Vital Signs (last 24 hours): Temp Pulse Resp BP Pulse Ox 97.7 F 75 20 131/48 L 95 05/03/17 08:48 05/03/17 08:48 05/03/17 08:48 05/03/17 08:48 05/03/17 08:48 Intake and Output: 05/03/17 05/03/17 06:59 18:59 Intake Total 1390 Balance 1390 - Medications Medications: Current Medications Acetaminophen (Tylenol 325mg Tab) 650 mg PO Q6 PRN PRN Reason: Pain, moderate (4-7) Last Admin: 04/28/17 17:15 Dose: 650 mg Albuterol/Ipratropium (Duoneb 3 Mg/0.5 Mg (3 Ml) Ud) 3 ml INH RQ6 [facility] Last Admin: 05/03/17 07:42 Dose: 3 ml Diltiazem HCl (Cardizem Cd) 120 mg PO DAILY [facility] Last Admin: 05/03/17 11:06 Dose: 120 mg Fenofibrate (Tricor) 145 mg PO DAILY [facility] Last Admin: 05/03/17 11:05 Dose: 145 mg Guaifenesin (Robitussin) 200 mg PO Q4H PRN PRN Reason: Cough and congestion Last Admin: 05/02/17 22:26 Dose: 200 mg Azithromycin 500 mg/ Sodium (Chloride) 250 mls @ 250 mls/hr IVPB Q24H [facility] Last Admin: 05/02/17 17:31 Dose: 250 mls/hr Ceftriaxone Sodium 1 gm/ (Sodium Chloride) 100 mls @ 100 mls/hr IVPB QPM [facility] Last Admin: 05/02/17 18:40 Dose: 100 mls/hr Insulin Aspart (Novolog) 0 unit SC ACHS [facility] PRN Reason: Protocol Last Admin: 05/03/17 12:38 Dose: 2 unit Metformin HCl (Glucophage) 500 mg PO DAILY [facility] Last Admin: 05/03/17 11:05 Dose: 500 mg Montelukast Sodium (Singulair) 10 mg PO HS [facility] Last Admin: 05/02/17 22:24 Dose: 10 mg Pantoprazole Sodium (Protonix Ec Tab) 40 mg PO DAILY [facility] Last Admin: 05/03/17 11:05 Dose: 40 mg Prednisone (Prednisone Tab) 20 mg PO DAILY [facility] Last Admin: 05/03/17 11:05 Dose: 20 mg Rosuvastatin Calcium (Crestor) 5 mg PO HS [facility] Last Admin: 05/02/17 22:24 Dose: 5 mg Fluticasone/Salmeterol (Advair Diskus 250/50) 1 puff INH RQ12 [facility] Sitagliptin Phosphate (Januvia) 50 mg PO DAILY [facility] Last Admin: 05/03/17 11:05 Dose: 50 mg - Labs Labs: 04/30/17 14:07 04/30/17 14:07 PT 13.1 SECONDS (9.7-12.2) H 04/28/17 11:11 INR 1.1 04/28/17 11:11 APTT 28 SECONDS (21-34) 04/28/17 11:11
[2017-05-03] MEDS: Azithromycin 500 MG in Sodium Chloride 0.9% 250 ML IVPB SCH (17:39)
[2017-05-04] MEDS: Albuterol-Ipratrop 3 mg / 0.5 (3 ml) UD INH SCH ×2 (07:32→13:42)
[2017-05-04 08:09] VITALS: TEMP 97.7
[2017-05-04] MEDS: (Novolog) Insulin Aspart, Recombinant 100 u/ml 10 ml vial SC SCH ×3 (08:17→17:16)
[2017-05-04] MEDS: Pantoprazole 40 mg EC Tab PO SCH (10:57)
[2017-05-04] MEDS: diltiaZEM 120 mg/24 Hours CD Cap PO SCH (10:59)
--- NOTE | 2017-05-04 13:56 | CP.PCM.PN ---
Subjective - Date & Time of Evaluation Date of Evaluation: 05/04/17 Time of Evaluation: 13:55 Objective - Vital Signs/Intake and Output Vital Signs (last 24 hours): Temp Pulse Resp BP Pulse Ox 97.7 F 69 20 135/84 98 05/04/17 08:07 05/04/17 08:07 05/04/17 08:07 05/04/17 08:07 05/04/17 08:07 Intake and Output: 05/04/17 05/04/17 06:59 18:59 Intake Total 240 Balance 240 - Medications Medications: Current Medications Acetaminophen (Tylenol 325mg Tab) 650 mg PO Q6 PRN PRN Reason: Pain, moderate (4-7) Last Admin: 04/28/17 17:15 Dose: 650 mg Albuterol/Ipratropium (Duoneb 3 Mg/0.5 Mg (3 Ml) Ud) 3 ml INH RQ6 [facility] Last Admin: 05/04/17 13:42 Dose: 3 ml Diltiazem HCl (Cardizem Cd) 120 mg PO DAILY [facility] Last Admin: 05/04/17 10:59 Dose: 120 mg Fenofibrate (Tricor) 145 mg PO DAILY [facility] Last Admin: 05/04/17 11:00 Dose: 145 mg Guaifenesin (Robitussin) 200 mg PO Q4H PRN PRN Reason: Cough and congestion Last Admin: 05/02/17 22:26 Dose: 200 mg Azithromycin 500 mg/ Sodium (Chloride) 250 mls @ 250 mls/hr IVPB Q24H [facility] Last Admin: 05/03/17 17:39 Dose: 250 mls/hr Insulin Aspart (Novolog) 0 unit SC ACHS [facility] PRN Reason: Protocol Last Admin: 05/04/17 11:30 Dose: 4 unit Metformin HCl (Glucophage) 500 mg PO DAILY [facility] Last Admin: 05/04/17 10:58 Dose: 500 mg Montelukast Sodium (Singulair) 10 mg PO HS [facility] Last Admin: 05/03/17 21:46 Dose: 10 mg Pantoprazole Sodium (Protonix Ec Tab) 40 mg PO DAILY [facility] Last Admin: 05/04/17 10:57 Dose: 40 mg Prednisone (Prednisone Tab) 20 mg PO DAILY [facility] Last Admin: 05/04/17 10:57 Dose: 20 mg Rosuvastatin Calcium (Crestor) 5 mg PO HS [facility] Last Admin: 05/03/17 21:46 Dose: 5 mg Fluticasone/Salmeterol (Advair Diskus 250/50) 1 puff INH RQ12 [facility] Sitagliptin Phosphate (Januvia) 50 mg PO DAILY [facility] Last Admin: 05/04/17 10:57 Dose: 50 mg - Labs Labs: 04/30/17 14:07 04/30/17 14:07 PT 13.1 SECONDS (9.7-12.2) H 04/28/17 11:11 INR 1.1 04/28/17 11:11 APTT 28 SECONDS (21-34) 04/28/17 11:11
[2017-05-04 14:51] LABS: BASO # 0.1 K/uL (0.0-0.2); BASO % 0.7 % (0.0-2.0); EOS # 0.1 K/uL (0.0-0.7); HEMOGLOBIN 13.6 g/dL (11.0-16.0); LYMPH # 2.7 K/uL (1.0-4.3); LYMPH % 17.9 % (20.0-40.0); MEAN CELL VOLUME 90.5 fL (81.0-99.0); MEAN CORPUSCULAR HEMOGLOBIN 30.5 pg (27.0-31.0); MEAN CORPUSCULAR HGB CONC 33.7 g/dL (33.0-37.0); MEAN PLATELET VOLUME 8.4 fL (7.2-11.7); MONO # 0.6 K/uL (0.0-0.8); NEUT # 11.6 K/uL (1.8-7.0); NEUT % 76.4 % (50.0-75.0); RBC 4.47 Mil/uL (3.80-5.20); WHITE BLOOD COUNT 15.2 K/uL (4.8-10.8)
[2017-05-04 15:13] LABS: ALB/GLOB RATIO 1.1 (1.0-2.1); ALBUMIN 4.1 g/dL (3.5-5.0); ALT/SGPT 70 U/L (9-52); AST/SGOT 47 U/L (14-36); BLOOD UREA NITROGEN 22 mg/dL (7-17); CALCIUM 9.7 mg/dl (8.6-10.4); GFR AFRICAN-AMERICAN > 60; GFR NON-AFRICAN AMERICAN > 60
[2017-05-04 16:32] VITALS: BP 121/76; PULSE 86; O2SAT 93
[2017-05-04] MEDS: Azithromycin 500 MG in Sodium Chloride 0.9% 250 ML IVPB SCH (17:18)
--- NOTE | 2017-05-04 18:10 | CP.PCM.PN ---
Subjective - Date & Time of Evaluation Date of Evaluation: 05/04/17 Time of Evaluation: 08:00 - Subjective Subjective: patient seen and examined Cough and shortness of breath much improved patient is afebrile No chest pain Switch to p.o. prednisone Continue nebulizer treatment Oral antibiotics Follow up in the office Objective - Vital Signs/Intake and Output Vital Signs (last 24 hours): Temp Pulse Resp BP Pulse Ox 97.7 F 86 20 121/76 93 L 05/04/17 15:00 05/04/17 15:00 05/04/17 15:00 05/04/17 15:00 05/04/17 15:00 Intake and Output: 05/04/17 05/04/17 06:59 18:59 Intake Total 240 Balance 240 - Medications Medications: Current Medications Acetaminophen (Tylenol 325mg Tab) 650 mg PO Q6 PRN PRN Reason: Pain, moderate (4-7) Last Admin: 04/28/17 17:15 Dose: 650 mg Albuterol/Ipratropium (Duoneb 3 Mg/0.5 Mg (3 Ml) Ud) 3 ml INH RQ6 [facility] Last Admin: 05/04/17 13:42 Dose: 3 ml Diltiazem HCl (Cardizem Cd) 120 mg PO DAILY [facility] Last Admin: 05/04/17 10:59 Dose: 120 mg Fenofibrate (Tricor) 145 mg PO DAILY [facility] Last Admin: 05/04/17 11:00 Dose: 145 mg Guaifenesin (Robitussin) 200 mg PO Q4H PRN PRN Reason: Cough and congestion Last Admin: 05/02/17 22:26 Dose: 200 mg Azithromycin 500 mg/ Sodium (Chloride) 250 mls @ 250 mls/hr IVPB Q24H [facility] Last Admin: 05/04/17 17:18 Dose: 250 mls/hr Insulin Aspart (Novolog) 0 unit SC ACHS [facility] PRN Reason: Protocol Last Admin: 05/04/17 17:16 Dose: 6 unit Metformin HCl (Glucophage) 500 mg PO DAILY [facility] Last Admin: 05/04/17 10:58 Dose: 500 mg Montelukast Sodium (Singulair) 10 mg PO HS [facility] Last Admin: 05/03/17 21:46 Dose: 10 mg Pantoprazole Sodium (Protonix Ec Tab) 40 mg PO DAILY [facility] Last Admin: 05/04/17 10:57 Dose: 40 mg Prednisone (Prednisone Tab) 20 mg PO DAILY [facility] Last Admin: 05/04/17 10:57 Dose: 20 mg Rosuvastatin Calcium (Crestor) 5 mg PO HS [facility] Last Admin: 05/03/17 21:46 Dose: 5 mg Fluticasone/Salmeterol (Advair Diskus 250/50) 1 puff INH RQ12 [facility] Sitagliptin Phosphate (Januvia) 50 mg PO DAILY [facility] Last Admin: 05/04/17 10:57 Dose: 50 mg - Labs Labs: 05/04/17 14:34 05/04/17 14:34 PT 13.1 SECONDS (9.7-12.2) H 04/28/17 11:11 INR 1.1 04/28/17 11:11 APTT 28 SECONDS (21-34) 04/28/17 11:11 Assessment and Plan (1) COPD exacerbation Status: Acute (2) Dyspnea Status: Acute
== END 2017-05-04 19:35 | disposition home or self-care (01) | DRG 191 ==
LOC: C.ER 04:31 → C.9E 08:26 → C.3T 10:35
PROVIDERS: ADMIT Internal Medicine Nephrology; ATTEND Internal Medicine Nephrology
DX: J44.1 Chronic obstructive pulmonary disease with (acute) exacerbation (principal); J45.901 Unspecified asthma with (acute) exacerbation; E11.9 Type 2 diabetes mellitus without complications; E78.1 Pure hyperglyceridemia; E78.00 Pure hypercholesterolemia, unspecified; E78.5 Hyperlipidemia, unspecified; Z87.442 Personal history of urinary calculi; Z87.891 Personal history of nicotine dependence; Z90.49 Acquired absence of other specified parts of digestive tract; Z88.0 Allergy status to penicillin; Z91.013 Allergy to seafood